=== PATIENT | male | born 1975 | race Caucasian/White ===

== ENCOUNTER 2017-04-08 08:42 | Day surgery (SDC) | payer SELFPAY ==
[2017-04-08] MEDS ORDERED: Ondansetron INJ* 2 MG/ML VIAL ONE ×2 (08:51→16:04)
[2017-04-08] MEDS ORDERED: Morphine INJ* 4 MG/ML 1 ML CARPUJECT ONE (08:51)
[2017-04-08] MEDS ORDERED: Morphine INJ* 2 MG/ML 1 ML SYRINGE (TWO MG - NEW SYRINGE VERSION) ONE (08:59)
[2017-04-08] MEDS ORDERED: Ondansetron INJ* 2 MG/ML VIAL IV ONE (09:03)
[2017-04-08] MEDS ORDERED: Morphine INJ* 2 MG/ML 1 ML SYRINGE (TWO MG - NEW SYRINGE VERSION) IV ONE (09:03)
[2017-04-08] MEDS ORDERED: Morphine INJ* 4 MG/ML 1 ML CARPUJECT IV ONE (09:11)
[2017-04-08] MEDS ORDERED: Lidocaine 2% PF * 5 ML VIAL ONE ×2 (09:18→15:36)
[2017-04-08] MEDS ORDERED: Lidocaine 2% PF * 5 ML VIAL INJ ONE (09:20)
[2017-04-08] MEDS ORDERED: Morphine INJ* 10 MG/ML 1 ML CARPUJECT ONE (09:49)
--- NOTE | 2017-04-08 09:50 | RAD ---
Patient: Foreign body overlying the thumb. 2 views of the hand demonstrates a radiopaque foreign body in the hyperthenar region. No definite fracture is identified. IMPRESSION: Foreign body in the hypothenar region of the thumb.
[2017-04-08] MEDS ORDERED: Morphine INJ* 10 MG/ML 1 ML CARPUJECT IV ONE (09:51)
[2017-04-08] MEDS ORDERED: KETAMINE HCL* 50 MG/ML 10 ML VIAL ONE (10:30)
[2017-04-08] MEDS ORDERED: Midazolam* 1 MG/ML 10 ML VIAL (10 MG) ONE (10:30)
--- NOTE | 2017-04-08 14:11 | HP ---
PREOPERATIVE HISTORY AND PHYSICAL: DATE OF ADMISSION: 04/08/17 Consulting Service: ER CHIEF COMPLAINT: Left hand pain. HISTORY OF PRESENT ILLNESS: Mr. Kim is a 42-year-old gentleman who presented to the emergency room today with complaints of a right hand injury after he was using a nail gun while at work. He states that the gun slipped and a nail was shot through the first web space in his hand. He presents with the board still stuck to his hand and a glove surrounding it. This happened at about 8:30 this morning. He denies any paresthesias or numbness in the hand. He does have a history of nail injury to this hand previously; however, there was no fracture as a result at that time as well. Pain is at the left radial hand and is constant, marked, sharp. Improved when not moved, worse with movement. PAST MEDICAL HISTORY: None. PAST SURGICAL HISTORY: None. CURRENT MEDICATIONS: Ibuprofen 600 mg as needed for pain. ALLERGIES: No known drug allergies . FAMILY HISTORY: Noncontributory. SOCIAL HISTORY: He lives with his spouse. He works in construction. He smokes two packs of cigarettes per day and has for 30 years. He drinks a 6- pack beer per night. He denies any illicit drug use. He does not exercise regularly. REVIEW OF SYSTEMS: Constitutional: Negative for recent hospitalizations, fevers, chills, night sweats or unexplained weight loss. Head: Negative for headaches, lightheadedness, or balance problems. Cardiovascular: Negative for chest or arm pain with exertion. History of heart attack, heart murmur, and heart palpitations, high blood pressure, embolism, or deep vein thrombosis. Respiratory: Negative for chronic cough, shortness of breath with exertion, asthma or COPD. Gastrointestinal: Negative for heartburn, nausea, vomiting, diarrhea, constipation or GERD. Genitourinary: Negative for nighttime urination, frequency of urination, urinary tract infections, or kidney problems. Musculoskeletal: Negative for chronic back pain or recent fractures. Skin: Negative for rashes, lesions, lumps or sores. Neurologic: Negative for seizure, stroke, epilepsy, depression, or anxiety. Endocrine: Negative for diabetes or thyroid problems. Hematology: Negative for easy bleeding, bruising, or anemia. PHYSICAL EXAMINATION GENERAL: He is a well-developed, well-nourished pleasant male, in no acute distress at rest. He is alert and oriented x3 with appropriate mood and affect. VITAL SIGNS: The patient is 5 feet 10 inches, 220 pounds, blood pressure 144/89 , pulse 92, oxygen saturation 99% on room air. HEENT: Normocephalic, atraumatic. Hearing and vision are grossly intact. NECK: Trachea is midline. RESPIRATORY: Lungs clear to auscultation bilaterally. No wheezes, rales, or rhonchi. CARDIOVASCULAR: Regular rate and rhythm. No murmurs, rubs, or gallops. Normal S1, S2. ABDOMEN: Soft, nondistended, nontender. Normal bowel sounds. EXTREMITIES: Exam of the left lower extremity, the patient has a nail embedded in the first web space of the left hand, which is attached to a wooden board. The glove that he is wearing has been cut through. There is no significant erythema or significant bleeding from the puncture site. He is able to flex and extend at the MCP, PIP, and DIP joints of all non-thumb fingers. His sensation to light touch is somewhat diminished over the ulnar aspect of the thumb. Light touch is intact to all other nerve distributions. He has a 2+ radial pulse. IMPRESSION: Left hand foreign body. PLAN: We discussed the diagnosis and prognosis at length today. We discussed both operative and non-operative measures. The patient expressed his desire to undergo an urgent deep left foreign body removal, irrigation and debridement. The risks, benefits, and postoperative course were discussed with the patient at length and he would like to proceed. All his questions were answered to his full satisfaction. He will remain NPO in preparation for surgery. Martinez Fraire MD [id number]/[facility] #: [id number] MICHAEL
[2017-04-08] MEDS ORDERED: Midazolam* 1 MG/ML 5 ML VIAL (5 MG) ONE (15:28)
[2017-04-08] MEDS ORDERED: ceFAZolin 2 GM PREMIX (*) 2 GM/50 ML BAG IVPB ONE (15:29)
[2017-04-08] MEDS ORDERED: Propofol* 10 MG/ML 20 ML BTL IV PUSH ONE (15:36)
[2017-04-08] MEDS ORDERED: fentaNYL* 50 MCG/ML 5 ML VIAL (250 MCG VIAL) ONE (15:36)
[2017-04-08] MEDS ORDERED: Ketorolac INJ* 30 MG/ML 1 ML VIAL ONE (15:56)
[2017-04-08] MEDS ORDERED: Bupivacaine 0.25% SDV* 30 ML ONE (15:59)
[2017-04-08] MEDS ORDERED: fentaNYL* 50 MCG/ML 2 ML VIAL (100 MCG VIAL) IV PRN (16:57)
[2017-04-08] MEDS ORDERED: PROCHLORPERAZINE INJ 5 MG/ML 2 ML VIAL IV PRN (16:57)
[2017-04-08] MEDS ORDERED: oxyCODONE/Acetamin 5/325 MG* TAB PO PRN (16:57)
[2017-04-08] MEDS ORDERED: HYDROcodone/ACETAMIN 5-325 MG* 1 TAB PO PRN (16:57)
[2017-04-08 17:06] VITALS: BP 136/92
--- NOTE | 2017-04-09 02:51 | OP ---
DATE OF OPERATION: 04/08/17 - [facility] DATE OF : 73 SURGEON: Martinez Fraire MD PATTERN TECHNICIAN: JEAN-PAUL Davis ANESTHESIOLOGIST: Misael Van MD ANESTHESIA: General endotracheal anesthesia. PRE-OP DIAGNOSIS: Left hand deep foreign body. POST-OP DIAGNOSIS: Left hand deep foreign body. OPERATIVE PROCEDURE: 1. Removal of deep foreign body from the left hand. 2. Deep Irrigation and debridement, left hand. IMPLANTS: None. TOURNIQUET TIME: Less than 30 minutes at 250 mmHg. SPECIMENS: Nail (3.5 inch framing nail) from left hand to Pathology. ESTIMATED BLOOD LOSS: Minimal. COMPLICATIONS: None. STATUS: Stable from the operating room to the recovery room and then home. 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 He was then came into the emergency room. We discussed both operative and nonoperative treatments at length. We discussed the risks and nature of surgery at length including the risk of infection, persistent problems, damage to vessel, nerves and tendons. DESCRIPTION OF PROCEDURE: The patient was seen in the preoperative holding unit and informed and written consent was obtained. The appropriate extremity was marked. The patient was then brought to the operating room and carefully positioned on the operating room table. The anesthesia was induced. All bony prominences were padded with great care. At this time, I took large bolt cutters and cut the framing nail, so that the 2 x 10 board could be removed from the hand. At this point, the remaining glove was extricated from the nail and hand, so now only there was a nail in his hand , none of the other part of the apparatus was there. At this point, a chlorhexidine based pre-scrub was performed followed by a prep and drape in the standard sterile fashion with Betadine. Surgical safety pause was conducted, in which we confirmed the appropriate patient, extremity, planned procedure, availability of equipment, indication, administration of prophylactic antibiotics, and DVT prophylaxis in the form of compression boots. We began with an Esmarch exsanguination and inflated the tourniquet. About a 1- cm incision was made both dorsally and volarly at the sites of the puncture wounds. Careful and blunt dissection was taken to expose the foreign body. I was able to free it loose with blunt dissection, and pull it out of the hand. The nail had gone right next to the bone and the EPL and bone were visible. At this point, we irrigated copiously and debrided the wound down to the level of the bone and tendon. All nonviable tissue in the first webspace was debrided and the skin edges were excised to a clean margin. After copious irrigation, the wounds were closed in layers utilizing 3-0 Monocryl, 3-0 nylon and a dry sterile dressing was then applied. He was awakened from anesthesia and transferred to the recovery room in stable condition. Complications none. Needle and sponge counts correct at the end of the case. ATTESTATION: I attest that I was present, scrubbed, and performed the entire case myself. POSTOPERATIVE PLAN: Cedrick will remain on antibiotics and will follow up next week for a wound check. He will be nonweightbearing on the left upper extremity. [id number]/[facility] #: [id number] MICHAEL
== END 2017-04-08 17:12 | disposition home or self-care (01) ==
LOC: ED 08:42 → OR 13:00
PROVIDERS: ATTEND Orthopaedic Surgery
DX: S61.442A Puncture wound with foreign body of left hand, initial encounter (principal); W31.89XA Contact with other specified machinery, initial encounter; Y93.H3 Activity, building and construction; Y92.9 Unspecified place or not applicable; F17.210 Nicotine dependence, cigarettes, uncomplicated
CPT/HCPCS: 88300; 96374; 99283; J0690; J1885; J2250; J2270; J2405; J2704; J3010